=== PATIENT | male | born 1960 | race Caucasian/White ===

== ENCOUNTER 2018-07-08 10:05 | Emergency (ER) | payer BC ==
[~2018-07-08] VITALS: Ht 175.3 cm; Wt 74.8 kg
[2018-07-08 10:10] VITALS: BP_SYST 131
[2018-07-08] MEDS ORDERED: KETOROLAC TROMETHAMINE 60 MG/2 ML VIAL IM ONE (11:30)
[2018-07-08] MEDS ORDERED: PREDNISONE 20 MG TABLET PO ONE (11:30)
[2018-07-08 12:19] VITALS: BP_SYST 128
== END 2018-07-08 12:21 | disposition home or self-care (01) ==
LOC: SED 10:05
DX: M54.16 Radiculopathy, lumbar region (principal); I10 Essential (primary) hypertension
CPT/HCPCS: 96372; 99283; J1885; J7512

== ENCOUNTER 2022-10-01 07:58 | Emergency (ER) | payer BC ==
[~2022-10-01] VITALS: Ht 175.3 cm; Wt 75.7 kg
[2022-10-01 08:07] VITALS: BP_SYST 132; PULSE 92; RESP 18; TEMP 97.9; O2SAT 98
[2022-10-01 08:47] LABS: BASOPHILS # (AUTO) 0.1 K/uL (0.0-0.2); BASOPHILS % (AUTO) 1.2 % (0.0-2.0); EOSINOPHILS # (AUTO) 0.4 K/uL (0.0-0.4); EOSINOPHILS % (AUTO) 7.6 % (0.0-4.0); HEMATOCRIT 45.4 % (36-54); HEMOGLOBIN 14.7 g/dL (14.0-18.0); LYMPHOCYTES # (AUTO) 0.8 K/uL (1.0-5.5); LYMPHOCYTES % (AUTO) 14.3 % (20.5-51.5); MEAN CORPUSCULAR HEMOGLOBIN 27 pg (27-31); MEAN CORPUSCULAR HGB CONC 32 % (32-36); MEAN CORPUSCULAR VOLUME 83 fL (79.0-98.0); MONOCYTES # (AUTO) 0.7 K/uL (0.0-1.0); MONOCYTES % (AUTO) 12.1 % (1.7-9.3); NEUTROPHILS # (AUTO) 3.8 K/uL (1.8-7.7); NEUTROPHILS % (AUTO) 64.8 % (40.0-70.0); PLATELET COUNT (AUTO) 238 K/uL (130-430); RED BLOOD CELL COUNT(AUTO) 5.45 MIL/uL (4.2-6.2); RED CELL DISTRIBUTION WIDTH 12.4 % (9.0-15.0); WHITE BLOOD COUNT (AUTO) 5.8 K/uL (4.8-10.8)
[2022-10-01 08:49] LABS: ERYTHROCYTE SEDIMENTATION RATE 11 MM/HR (0-15)
[2022-10-01 09:10] LABS: ALBUMIN 3.5 g/dL (3.4-4.8); CALCIUM 8.7 mg/dL (8.4-11.0); CREATININE 1.08 mg/dL (0.55-1.30); POTASSIUM 4.3 mmol/L (3.5-5.1); TOTAL BILIRUBIN 0.4 mg/dL (0.0-1.0); TOTAL PROTEIN, SERUM 6.7 g/dL (6.4-8.3); URIC ACID 5.5 mg/dL (2.4-7.0)
[2022-10-01] MEDS ORDERED: IBUP-1971 PO (09:57)
[2022-10-01] MEDS ORDERED: HYDR-3927 PO (09:57)
[2022-10-01 10:33] VITALS: BP_SYST 139; PULSE 76; RESP 16; TEMP 98.6; O2SAT 98
== END 2022-10-01 10:30 | disposition home or self-care (01) ==
LOC: SED 07:58
DX: M65.272 Calcific tendinitis, left ankle and foot (principal); M25.475 Effusion, left foot; I10 Essential (primary) hypertension; Z79.899 Other long term (current) drug therapy
CPT/HCPCS: 36415; 80053; 84550; 85025; 85651-TC; 99284